=== PATIENT | female | born 1995 | race Caucasian/White ===

== ENCOUNTER 2018-03-07 16:16 | Outpatient (CLI) | END 2018-03-07 20:20 | disposition home or self-care (01) ==

== ENCOUNTER 2018-05-20 13:31 | Inpatient (IN) | payer BC ==
[~2018-05-20] VITALS: Ht 165.1 cm; Wt 99.5 kg
[~2018-05-20 13:31] MED LIST: PREN1TAB71 PO
[2018-05-20 13:43] VITALS: BP 119/73; PULSE 82; Ht 165.1 cm; Wt 99.5 kg
[2018-05-20] MEDS ORDERED: MISOPROSTOL 200 MCG TAB PR PRN (15:30)
[2018-05-20] MEDS ORDERED: AMPICILLIN 2 GM/NS (PMX) 100 ML IV ONE (15:30)
[2018-05-20] MEDS ORDERED: LIDOCAINE 1% (MPF) 30 ML INJ INJ PRN (15:30)
[2018-05-20] MEDS ORDERED: BUTORPHANOL 1 MG INJ IV PRN (15:30)
[2018-05-20] MEDS ORDERED: CARBOPROST 250 MCG INJ IM PRN (15:30)
[2018-05-20] MEDS ORDERED: OXYTOCIN 30 UNITS/LR 500 ML IV PRN (15:30)
[2018-05-20] MEDS ORDERED: METHYLERGONOVINE 0.2 MG INJ IM PRN (15:30)
[2018-05-20] MEDS ORDERED: OXYTOCIN 30 UNITS/LR 500 ML IV SCH ×2 (15:30)
[2018-05-20] MEDS ORDERED: MINERAL OIL LIGHT 10 ML VIAL TOP ONE (15:30)
[2018-05-20] MEDS ORDERED: BUTORPHANOL 2 MG INJ IV PRN (15:30)
[2018-05-20] MEDS: LACTATED RINGER'S 1,000 ML IV SCH (16:21)
[2018-05-20] MEDS: MISOPROSTOL 50 MCG CAPSULE PO SCH ×2 (16:57→21:28)
--- NOTE | 2018-05-20 18:52 | HP ---
Date/Time of Note Date/Time of Note DATE: 05/20/18 TIME: 18:50 OB - History Hx of Present Chief Complaint: induction of labor Estimated Due Date: May 23, 2018 : 1 Para: 0 Spontaneous : 0 Therapeutic : 0 Care: Good Care Ultrasounds: Normal mid trimester US Obstetrical Complications: None Past Family/Social History * Past Medical, Surgical, Family and Obstetric Histories reviewed from chart. GBS Status: Positive OB Admission Exam Vital Signs Vital Signs Vital Signs Date Temp Pulse Resp B/P (MAP) Pulse Ox O2 O2 Flow FiO2 Time Delivery Rate 05/20/18 98.7 82 119/73 Room Air 13:43 (88) Physical Exam HEENT: WNL Heart: Rhythm Normal Lungs: Clear, Equal Abdomen: WNL Extremities: Normal Reflexes: Normal Cervical Dilatation: Fingertip Effacement: 50% Station: -1 Membranes: Intact Heart Rate: 130's Accelerations: Accelerations Present Decelerations: No Decelerations Varibility: Moderate Last 72 hours Lab Results CBC & BMP 05/20/18 16:15 OB Assessment/Plan Reason for admission: induction of labor Plan: Induction Induction Method: per Misoprostol Protocol MANFRED CARRILLO MD May 20, 2018 18:52
[2018-05-20] MEDS: AMPICILLIN 1 GM/NS (PMX) 50 ML IV SCH (20:20)
[2018-05-21] MEDS: AMPICILLIN 1 GM/NS (PMX) 50 ML IV SCH ×7 (00:51→23:33)
[2018-05-21] MEDS: MISOPROSTOL 50 MCG CAPSULE PO SCH ×6 (00:52→21:00)
[2018-05-21] MEDS: LACTATED RINGER'S 1,000 ML IV SCH ×4 (03:37→20:51)
[2018-05-21] MEDS ORDERED: ACETAMINOPHEN 325 MG TAB PO PRN (04:00)
[2018-05-21] MEDS: OXYTOCIN 30 UNITS/LR 500 ML IV SCH (20:49)
--- NOTE | 2018-05-21 21:23 | PREAC ---
Date/Time of Note Date/Time of Note DATE: 05/21/18 TIME: 21:22 Anesthesia Eval and Record Evaluation Time Pre-Procedure Interview DATE: 05/21/18 TIME: 21:22 Age 22 Sex female NPO: Other (n/a) Preoperative diagnosis intrauterine Planned procedure labor epidural Past Medical History Past Medical History: Includes : : (1), Para: (0) Surgery & Anesthesia Issues No known issue Meds Anticoagulation: No Beta Olivia within 24 hr: No Reason Beta Olivia not given: Pt. not on B-Olivia Reported Medications Vit No.130/Iron/FA ( Tablet) 1 Each Tablet, 1 EACH PO DAILY 05/06/18 Current Medications Lactated Ringer's 1,000 ml @ 125 mls/hr Q8H IV Last administered on 05/21/18at 20:51; Admin Dose 125 MLS/HR; Start 05/20/18 at 15:08 Ampicillin 50 ml @ 100 mls/hr Q4H IV Last administered on 05/21/18at 19:12; Admin Dose 100 MLS/HR; Start 05/20/18 at 19:30 Butorphanol Tartrate (Stadol) 1 mg Q2H PRN IV .PAIN; Start 05/20/18 at 15:30 Butorphanol Tartrate (Stadol) 2 mg Q2H PRN IV .PAIN; Start 05/20/18 at 15:30 Lidocaine (Xylocaine 1% (Mpf)) 30 ml ONCE PRN INJ .EPISIOTOMY; Start 05/20/18 at 15:30 Oxytocin/Lactated Ringer's 500 ml @ 500 mls/hr ONCE POST IV ; Start 05/20/18 at 15:30 Oxytocin/Lactated Ringer's 500 ml @ 125 mls/hr POST IV ; Start 05/20/18 at 15:30 Oxytocin/Lactated Ringer's 500 ml @ 0 mls/hr ONCE PRN IV .VAGINAL BLEEDING; Start 05/20/18 at 15:30 Methylergonovine Maleate (Methergine) 0.2 mg ONCE PRN IM .VAGINAL BLEEDING; Start 05/20/18 at 15:30 Carboprost Tromethamine (Hemabate) 250 mcg ONCE PRN IM .VAGINAL BLEEDING; Start 05/20/18 at 15:30 Misoprostol (Cytotec) 1,000 mcg ONCE PRN AK .VAGINAL BLEEDING; Start 05/20/18 at 15:30 Misoprostol (Cytotec 50 Mcg Capsule) 50 mcg Q4 PO Last administered on 05/21/18at 15:41; Admin Dose 50 MCG; Start 05/20/18 at 17:00 Oxytocin/Lactated Ringer's 500 ml @ 0 mls/hr Q0M IV Last administered on 05/21/18at 20:49; Admin Dose 1 MLS/HR; Start 05/21/18 at 19:30 Meds reviewed: Yes Allergies Coded Allergies: No Known Allergy (Unverified , 05/07/18) Allergies Reviewed: Yes Labs/Studies Labs Reviewed: Reviewed by anesthesiologist Result Diagram: 05/20/18 1615 test: N/A Pre-procedure Exam Last vitals Vital Signs Date Temp Pulse Resp B/P (MAP) Pulse Ox O2 O2 Flow FiO2 Time Delivery Rate 05/20/18 98.7 82 119/73 Room Air 13:43 (88) Airway: Adequate mouth opening, Adequate thyromental dist Mallampati: Mallampati II Teeth: Normal Lung: Normal Heart: Normal ASA Physical Status ASA physical status: 2 Emergency: None Planned Anesthetic Neuraxial: Epidural Planned Pain Management Epidural, Parenteral pain med Pre-operative Attestations Prior to commencing anesthesia and surgery, the patient was re-evaluated, there was verification of: *The patient's identity *The results of appropriate recent lab work and preoperative vital signs *The above evaluation not changing prior to induction *Anesthetic plan, risk benefits, alternative and complications discussed with patient/family; questions answered; patient/family understands, accepts and wishes to proceed. MARQUISE LANDEROS MD May 21, 2018 21:23
[2018-05-21] MEDS ORDERED: FENTAnyl 2MCG/ML-ROPIV 0.2% 100 ML ONE (21:29)
[2018-05-21] MEDS ORDERED: NALOXONE (0.4 MG/ML) INJ IV PRN (21:30)
[2018-05-21] MEDS ORDERED: ONDANSETRON 4 MG INJ IV PRN (21:30)
[2018-05-21] MEDS ORDERED: DIPHENHYDRAMINE 50 MG INJ IV PRN (21:30)
--- NOTE | 2018-05-21 22:34 | PAC ---
Date/Time of Note Date/Time of Note DATE: 05/21/18 TIME: 22:33 Post-Anesthesia Notes Post-Anesthesia Note Last documented vital signs Vital Signs Date Temp Pulse Resp B/P (MAP) Pulse Ox O2 O2 Flow FiO2 Time Delivery Rate 05/20/18 98.7 82 119/73 Room Air 13:43 (88) Activity: WNL Respiratory function: WNL Cardiovascular function: WNL Mental status: Baseline Pain reasonably controlled: Yes Hydration appropriate: Yes Nausea/Vomiting absent: Yes Comments BP: 120/62 HR: 64 RR: 15 T: 98 SaO2: 99% MARQUISE LANDEROS MD May 21, 2018 22:34
[2018-05-22] MEDS: MISOPROSTOL 50 MCG CAPSULE PO SCH (01:00)
[2018-05-22] MEDS: AMPICILLIN 1 GM/NS (PMX) 50 ML IV SCH ×6 (03:15→23:24)
[2018-05-22] MEDS: FENTAnyl 2MCG/ML-ROPIV 0.2% 100 ML BAG EPI SCH ×3 (05:04→21:50)
[2018-05-22] MEDS: LACTATED RINGER'S 1,000 ML IV SCH ×2 (06:39→15:30)
[2018-05-23] MEDS: LACTATED RINGER'S 1,000 ML IV SCH (01:01)
[2018-05-23] MEDS: AMPICILLIN 1 GM/NS (PMX) 50 ML IV SCH (03:29)
[2018-05-23] MEDS: FENTAnyl 2MCG/ML-ROPIV 0.2% 100 ML BAG EPI SCH (04:37)
[2018-05-23] MEDS ORDERED: MINERAL OIL LIGHT 10 ML VIAL ONE (06:28)
--- NOTE | 2018-05-23 07:20 | LDN ---
Date/Time of Note Date/Time of Note DATE: 05/23/18 TIME: 07:17 Delivery Summary Called to deliver the patient who was and delivered a viable baby boy weighing 3635 grams or 8#, 20" long, and with Apgars of 8/9. Weeks of Gestation 39w 6d Placenta Delivered: Spontaneously Meconium: none Episiotomy: No Perineal laceration: 1 Laceration repair: B/l 1st degree vaginal lacerations and a 1st degree perienal laceration repaired with 3-0 chromic. Anesthesia type: Epidural Estimated blood loss: 200 Sponge & Needle done & correct: Yes All needle counts correct: Yes Any foreign bodies felt in the: No (vagina) Delivery Information Sex Infant Sex: male Apgars 1 Minute: 8 5 Minute: 9 Suctioning Nose & mouth suctioned at piper: Yes Delee suction performed: No Umbilical Cord Umbilical cord with: 3 Vessels Cord presentations: nuchal cord Nuchal cord present X: 1 Cord Blood was obtained: Yes Mother & Baby Disposition Disposition Mom & Baby to Maternity; Good: Yes Baby to NICU: No CHEY PRECIADO MD May 23, 2018 07:20
[2018-05-23] MEDS: LACTATED RINGER'S 1,000 ML IV* SCH ×3 (07:21→23:21)
[2018-05-23] MEDS ORDERED: WITCH HAZEL/GLYCERIN PAD PR PRN (07:30)
[2018-05-23] MEDS ORDERED: METHYLERGONOVINE 0.2 MG INJ IM PRN (07:30)
[2018-05-23] MEDS ORDERED: OXYTOCIN 30 UNITS/LR 500 ML IV PRN (07:30)
[2018-05-23] MEDS ORDERED: HYDROCODONE/APAP (5/325) TAB PO PRN (07:30)
[2018-05-23] MEDS ORDERED: CARBOPROST 250 MCG INJ IM PRN (07:30)
[2018-05-23] MEDS ORDERED: LANOLIN HPA 1 PKT TOP PRN (07:30)
[2018-05-23] MEDS ORDERED: BENZOCAINE 20% 56 ML SPRAY TOP PRN (07:30)
[2018-05-23] MEDS ORDERED: MISOPROSTOL 200 MCG TAB PR PRN (07:30)
[2018-05-23 08:00] VITALS: BP 115/65; PULSE 71; RESP 18
[2018-05-23 09:20] VITALS: BP 116/75; PULSE 78; RESP 18
[2018-05-23] MEDS: OXYTOCIN 30 UNITS/LR 500 ML IV SCH ×3 (11:19→17:21)
[2018-05-23] MEDS: IBUPROFEN 600 MG TAB PO SCH ×3 (11:20→23:29)
[2018-05-23 11:30] VITALS: BP 103/56; PULSE 87; RESP 19
[2018-05-23 16:00] VITALS: BP 110/50; PULSE 80; RESP 17
[2018-05-23 20:00] VITALS: BP 116/70; PULSE 97; RESP 20
[2018-05-24 03:25] VITALS: BP 121/62; PULSE 74; RESP 20
[2018-05-24] MEDS: IBUPROFEN 600 MG TAB PO SCH ×4 (05:19→23:47)
[2018-05-24 08:00] VITALS: BP 107/67; PULSE 74; RESP 18
[2018-05-24] MEDS ORDERED: INFLUENZA VIRUS VACCINE 0.5 ML (DISPENSING) IM* ONE (09:00)
--- NOTE | 2018-05-24 11:58 | DS ---
Date/Time of Note Date/Time of Note DATE: 05/24/18 TIME: 11:58 Obstetrical Discharge Record Final Diagnosis Final Diagnosis: Term delivered Vaginal Delivery Obstetrical Delivery: Spontaneous Complications Induction: Yes Condition on Discharge Physical Assessment Voiding: Yes Bowel Movement: Yes Breast: Soft, non-tender, Filling Fundus: Firm Calf Tenderness: No Patient Condition: Stable MANFRED CARRILLO MD May 24, 2018 11:58
[2018-05-24 15:42] VITALS: BP 120/62; PULSE 78; RESP 20
[2018-05-24 19:30] VITALS: BP 119/68; PULSE 69; RESP 19
[2018-05-25 04:00] VITALS: BP 103/67; PULSE 68; RESP 19
[2018-05-25] MEDS: IBUPROFEN 600 MG TAB PO SCH ×2 (05:41→12:44)
[2018-05-25 09:00] VITALS: BP 105/68; PULSE 76; RESP 20
[2018-05-25] MEDS ORDERED: DIPHTH/TET/ACEL PERTUSS (ADULT) 0.5 ML VIAL IM* ONE (09:00)
== END 2018-05-25 14:30 | disposition home or self-care (01) | DRG 807 ==
LOC: L-D 13:31 → OBT 13:31 → L-D 15:00 → PP1 05-23 08:05
PROVIDERS: ADMIT Obstetrics & Gynecology; ATTEND Obstetrics & Gynecology
PROC: 10E0XZZ Delivery of Products of Conception, External Approach (ICD-10-PCS; principal; 2018-05-21)
PROC: 0HQ9XZZ Repair Perineum Skin, External Approach (ICD-10-PCS; 2018-05-21)
DX: O70.0 First degree perineal laceration during delivery (principal); Z37.0 Single live birth; O69.81X0 Labor and delivery complicated by cord around neck, without compression, not applicable or unspecified; Z3A.39 39 weeks gestation of pregnancy
CPT/HCPCS: 62319; 76815; 76818; 85025; 85610; 85730; 86592; 86850; 86900; 86901; 90715; G0463; J0290; J2590; J3010; J7120